=== PATIENT | male | born 1980 | race African-American/Black ===

== ENCOUNTER 2020-06-28 22:54 | Inpatient (IN) | payer SELFPAY ==
[2020-06-28 23:22] VITALS: BP 137/87; PULSE 73; RESP 17; TEMP 36.8; O2SAT 98; BMI 29.5
[2020-06-28 23:27] LABS: Add Urine Microscopic? NO
[2020-06-28 23:38] LABS: Amphetamines Screen Urine Negative (Negative); Barbiturates Screen Urine Negative (Negative); Benzodiazepines Screen Urine Negative (Negative); Cocaine Screen Urine Negative (Negative); Opiate Screen Urine Negative (Negative); PCP Screen Urine Negative (Negative); THC Screen Urine Negative (Negative)
[2020-06-28 23:44] LABS: Basophils % 0.4 %; Eosinophils # 0.1 10^3/uL (0.0-0.8); Eosinophils % 2.1 %; Hematocrit 42.8 % (42.0-52.0); Hemoglobin 13.6 g/dL (11.7-16.6); Lymphocytes # 1.9 10^3/uL (0.8-4.8); Lymphocytes % 39.8 %; Mean Corpuscular HGB Conc 31.8 g/dL (30.0-36.0); Mean Corpuscular Volume 91.3 fL (80-94); Mean Platelet Volume 9.2 fL (7.4-10.4); Monocytes # 0.5 10^3/uL (0.2-0.9); Monocytes % 10.7 %; Neutrophils # 2.18 10^3/uL (1.8-7.7); Neutrophils % 46.8 %; Nucleated Red Blood Cells % 0 %; Platelet Count 257 10^3/cmm (130-400); Red Blood Count 4.69 10^6/uL (4.1-5.3); Red Cell Distribution Width 14.7 % (12.1-15.1); White Blood Count 4.7 10^3/uL (4.0-10.0)
[2020-06-28 23:45] LABS: Bilirubin Urine Neg (Negative); Blood Urine Neg (Negative); Glucose Urine UA Norm (Normal); Ketones Urine Negative (Negative); Leukocyte Esterase Urine Negative (Negative); Nitrate Urine Negative (Negative); Protein Urine Neg (Negative); Specific Gravity, Urine 1.015 (1.005-1.030); Urine Appearance Clear (CLEAR); Urine Color Straw (Yellow); Urobilinogen Urine Norm (Negative); pH Urine 7 (5-7)
[2020-06-29] LABS: Alanine Aminotransferase 31 U/L (0-41); Albumin Level 4.2 g/dL (3.5-5.2); Alkaline Phosphatase 84 IU/L (40-130); Anion Gap 13.7 (5-19); Aspartate Amino Transferase 38 U/L (0-40); Blood Urea Nitrogen 15 mg/dL (6-20); Calcium 9.1 mg/dL (8.5-10.5); Carbon Dioxide 23 mmol/L (22-29); Chloride 104 mmol/L (98-107); Globulin 3.2 g/dL (1.3-4.6); Glomerular Filtration Rate 101.2 mL/min (90-130); Glucose 97 mg/dL (65-115); Osmolality Calculated 285 mOsm/kg (285-295); Potassium 3.7 mmol/L (3.5-5.1); Sodium 137 mmol/L (136-145); Total Bilirubin 0.4 mg/dL (0.15-1.2); Total Protein 7.4 g/dL (6.6-8.7)
[2020-06-29 00:01] LABS: Acetaminophen < 5.0 ug/mL (10-30); Alcohol Level < 10 mg/dL (0-10); Salicylate < 0.3 mg/dL (3-10)
[2020-06-29 01:44] VITALS: BP 130/85; PULSE 74; RESP 18; TEMP 36.5; O2SAT 99
[2020-06-29 06:00] VITALS: BP 130/85; PULSE 74; RESP 18; TEMP 36.5
[2020-06-29 07:30] VITALS: PULSE 86; RESP 16; O2SAT 98
[2020-06-29] MEDS: albuterol 8 gm MDI 2 PUFF INHALATION (07:30)
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
[2020-06-29] MEDS: levETIRAcetam 500 mg Tablet 750 MG PO (12:26)
[2020-06-29 14:00] VITALS: BP 113/77; PULSE 85; RESP 18; TEMP 36.7
[2020-06-29] MEDS: trazodone 50 mg Tablet PO ×2 (20:45→23:32)
--- NOTE | 2020-06-29 20:45 | PC.NURSE ---
Addendum entered by Josue Calle LPN 06/30/20 01:02: LATE ENTRY PRN FOLLOW-UP @ 2145 PT RESTING IN BED. WILL CONTINUE TO MONITOR. Original Note: PRN TRAZODONE ADMINISTERED TRAZODONE 50 MG PO PER PT REQUEST FOR SLEEP. WILL MONITOR FOR MEDICATION EFFECTIVENESS.
[2020-06-29 21:47] VITALS: BP 118/80; PULSE 69; RESP 15; TEMP 36.6; O2SAT 99
[2020-06-29] MEDS: hyDROXYzine 25 mg Capsule 50 MG PO (23:32)
--- NOTE | 2020-06-30 00:22 | ED_ITS ---
HPI - Psych General: Chief Complaint: Psychiatric Symptoms Stated Complaint: SI Time Seen by Provider: 06/28/20 23:04 History of Present Illness: HPI Narrative: 39-year-old male presents complaining of depression with suicidal ideation. He is had a couple of suicide attempts in the past. He had a knife ready to cut his throat at home, but put the knife down and called the ambulance instead. He denies any other recent illness. MD complaint: suicidal ideation and feels depressed Onset (ago): day(s) History of same: Yes Relieving factors: none Exacerbating factors: none Associated psychiatric symptoms: depression and suicidal ideation Associated symptoms: Reports suicidal ideation; Deny visual hallucinations If self harm: admits thoughts of self harm Review of Systems Const: Denies: fever(s) or chills Eyes: Denies: change in vision ENMT: Denies: swelling of lips/tongue, dental pain, epistaxis or sinus pain Card: Denies: chest pain, palpitations, irregular heart rhythm or edema Resp: Denies: dyspnea, productive cough, non-productive cough or wheezing GI: Denies: abdominal pain, nausea, vomiting, rectal pain, hematochezia or melena : Denies: difficulty urinating or hematuria Musc: Denies: neck pain, back pain or joint warmth Skin/Breast: Denies: rash or erythema Neuro: Denies: headache(s), dizziness, vertigo or confusion Psych: Reports: suicidal ideation; Denies: visual hallucinations Physical Exam Const: GENERAL APPEARANCE: well developed ORIENTATION/CONSCIOUSNESS: Yes oriented to person, Yes oriented to place and Yes oriented to time HENMT: COMMON NORMALS: normocephalic, external ears normal and Normal external nose present HEAD & SCALP: normocephalic FACE & SINUS: normal facial exam NOSE: Normal external nose present and No nasal discharge present EXTERNAL EAR: Yes external ears normal Eye: COMMON NORMALS: Equal, round and reactive pupils present, EOMs intact bilaterally and conjunctivae normal EYELID: eyelids normal CONJUNCTIVA: Yes conjunctivae normal PUPIL: Yes Equal, round and reactive pupils present Neck/C-Spine: GENERAL: No tracheal deviation Chest: COMMONS NORMALS: normal inspection of the chest CHEST: No tenderness Resp: COMMON NORMALS: clear to auscultation bilaterally EFFORT & INSPECTION: No tachypneic, No respiratory distress, No retractions, No uses accessory muscles and No tracheal deviation AUSCULTATION: clear to auscultation bilaterally, no rhonchi, no wheezes and lung sounds not diminished Cardio: COMMON NORMALS: regular rate and regular rhythm RATE: regular rate RHYTHM: regular rhythm HEART SOUNDS: no murmurs PERIPHERAL PULSES: radial pulses present GI: INSPECTION: No abdominal distension AUSCULTATION: No Hyperactive bowel sounds present and No Hypoactive bowel sounds present PALPATION: No Guarding due to palpation present (GI) and No Rigid due to palpation PERCUSSION: no dullness to percussion and no tympanic to percussion Neuro: SENSORIUM/ORIENTATION: Yes oriented to person, Yes oriented to place and Yes oriented to time Psych: COMMON NORMALS: Normal thought process present and speech normal ATTITUDE: Yes calm ACTIVITY/MOTOR BEHAVIOR: Yes appropriate eye contact SPEECH: Yes normal speech MOOD & AFFECT: Yes depressed mood THOUGHT PROCESS: Normal thought process present THOUGHT CONTENT: Yes Suicidality present, No Homicidality present and No Hallucination(s) present ATTENTION/CONCENTRATION: Yes attention grossly intact and Yes concentration grossly intact MEMORY/COGNITION: Yes memory grossly intact INSIGHT: Fair insight present (Psych) JUDGEMENT: Fair judgement present (Psych) Skin: COMMON NORMALS: no rashes or lesions noted GENERAL SKIN EXAM: no rashes or lesions noted MDM - Psych MDM Narrative: Medical decision making narrative: Medically clear for NPU admit Lab Data: Labs: Lab Results 06/28/20 06/28/20 06/28/20 Range/Units 23:17 23:17 23:38 WBC 4.7 (4.0-10.0) 10^3/ uL RBC 4.69 (4.1-5.3) 10^6/u L Hgb 13.6 (11.7-16.6) g/dL Hct 42.8 (42.0-52.0) % MCV 91.3 (80-94) fL MCH 29.0 (28.0-34.0) pg MCHC 31.8 (30.0-36.0) g/dL RDW 14.7 (12.1-15.1) % Plt Count 257 (130-400) 10^3/c mm MPV 9.2 (7.4-10.4) fL Neut % (Auto) 46.8 % Lymph % (Auto) 39.8 % Russell % (Auto) 10.7 % Eos % (Auto) 2.1 % Baso % (Auto) 0.4 % Neut # (Auto) 2.18 (1.8-7.7) 10^3/u L Lymph # (Auto) 1.9 (0.8-4.8) 10^3/u L Russell # (Auto) 0.5 (0.2-0.9) 10^3/u L Eos # (Auto) 0.1 (0.0-0.8) 10^3/u L Baso # (Auto) 0.0 (0.0-0.1) 10^3/u L Nucleated RBC % (a uto) 0 % Nucleated RBCs # 0.0 /100WBC Sodium (136-145) mmol/L Potassium (3.5-5.1) mmol/L Chloride (98-107) mmol/L Carbon Dioxide (22-29) mmol/L Anion Gap (5-19) BUN (6-20) mg/dL Creatinine (0.7-1.2) mg/dL GFR Calculation (90-130) mL/min Glucose (65-115) mg/dL Calculated Osmolal ity (285-295) mOsm/k g Calcium (8.5-10.5) mg/dL Total Bilirubin (0.15-1.2) mg/dL AST (0-40) U/L ALT (0-41) U/L Alkaline Phosphata se (40-130) IU/L Total Protein (6.6-8.7) g/dL Albumin (3.5-5.2) g/dL Globulin (1.3-4.6) g/dL Urine Color Straw (Yellow) Urine Appearance Clear (CLEAR) Urine pH 7 (5-7) Ur Specific Gravit y 1.015 (1.005-1.030) Urine Protein Neg (Negative) Urine Glucose (UA) Norm (Normal) Urine Ketones Negative (Negative) Urine Blood Neg (Negative) Urine Nitrate Negative (Negative) Urine Bilirubin Neg (Negative) Urine Urobilinogen Norm (Negative) mg/dL Ur Leukocyte Carolyne ase Negative (Negative) Salicylates (3-10) mg/dL Urine Opiates Scre en Negative (Negative) ng/mL Acetaminophen (10-30) ug/mL Ur Barbiturates Sc reen Negative (Negative) ng/mL Ur Phencyclidine S crn Negative (Negative) ng/mL Ur Amphetamines Sc reen Negative (Negative) ng/mL U Benzodiazepines Scrn Negative (Negative) ng/mL Urine Cocaine Scre en Negative (Negative) ng/mL U Marijuana (THC) Screen Negative (Negative) ng/mL Ethyl Alcohol (0-10) mg/dL 06/28/20 Range/Units 23:38 WBC (4.0-10.0) 10^3/ uL RBC (4.1-5.3) 10^6/u L Hgb (11.7-16.6) g/dL Hct (42.0-52.0) % MCV (80-94) fL MCH (28.0-34.0) pg MCHC (30.0-36.0) g/dL RDW (12.1-15.1) % Plt Count (130-400) 10^3/c mm MPV (7.4-10.4) fL Neut % (Auto) % Lymph % (Auto) % Russell % (Auto) % Eos % (Auto) % Baso % (Auto) % Neut # (Auto) (1.8-7.7) 10^3/u L Lymph # (Auto) (0.8-4.8) 10^3/u L Russell # (Auto) (0.2-0.9) 10^3/u L Eos # (Auto) (0.0-0.8) 10^3/u L Baso # (Auto) (0.0-0.1) 10^3/u L Nucleated RBC % (a uto) % Nucleated RBCs # /100WBC Sodium 137 (136-145) mmol/L Potassium 3.7 (3.5-5.1) mmol/L Chloride 104 (98-107) mmol/L Carbon Dioxide 23 (22-29) mmol/L Anion Gap 13.7 (5-19) BUN 15 (6-20) mg/dL Creatinine 1.0 (0.7-1.2) mg/dL GFR Calculation 101.2 (90-130) mL/min Glucose 97 (65-115) mg/dL Calculated Osmolal ity 285 (285-295) mOsm/k g Calcium 9.1 (8.5-10.5) mg/dL Total Bilirubin 0.4 (0.15-1.2) mg/dL AST 38 (0-40) U/L ALT 31 (0-41) U/L Alkaline Phosphata se 84 (40-130) IU/L Total Protein 7.4 (6.6-8.7) g/dL Albumin 4.2 (3.5-5.2) g/dL Globulin 3.2 (1.3-4.6) g/dL Urine Color (Yellow) Urine Appearance (CLEAR) Urine pH (5-7) Ur Specific Gravit y (1.005-1.030) Urine Protein (Negative) Urine Glucose (UA) (Normal) Urine Ketones (Negative) Urine Blood (Negative) Urine Nitrate (Negative) Urine Bilirubin (Negative) Urine Urobilinogen (Negative) mg/dL Ur Leukocyte Carolyne ase (Negative) Salicylates < 0.3 L (3-10) mg/dL Urine Opiates Scre en (Negative) ng/mL Acetaminophen < 5.0 L (10-30) ug/mL Ur Barbiturates Sc reen (Negative) ng/mL Ur Phencyclidine S crn (Negative) ng/mL Ur Amphetamines Sc reen (Negative) ng/mL U Benzodiazepines Scrn (Negative) ng/mL Urine Cocaine Scre en (Negative) ng/mL U Marijuana (THC) Screen (Negative) ng/mL Ethyl Alcohol < 10 (0-10) mg/dL Discharge Plan Discharge Admit Provider: Dmitri Burgess Discharge Date/Time: 06/29/20 02:07 Coding Level of Care Code ED Senior Research Manager for Tammy Coats
--- NOTE | 2020-06-30 01:04 | PC.NURSE ---
PRN TRAZODONE & VISTARIL ADMINISTERED 50 MG FOR PT C/O OF INSOMNIA & VISTARIL 50MG PO FOR PT C/O INCREASING ANXIETY. WILL MONITOR FOR MEDICATION FOR EFFECTIVENESS.
[2020-06-30 06:00] VITALS: BP 123/79; PULSE 87; RESP 16; TEMP 36.7; O2SAT 98
[2020-06-30] MEDS: levETIRAcetam 500 mg Tablet 750 MG PO (08:25)
--- NOTE | 2020-06-30 12:58 | PM.NPN ---
Subjective NPU Subjective: Interval history: Patient presents today reporting that he did not get his Haldol last night. We discussed making sure that it was taking care of today. He continues to endorse a plan to get back on the medication and get possibly back on the shot that he was getting in long-term. We discussed the risk benefits and alternatives of getting him reconnected with services and him working with the treatment team to explore what our options would be available to him and what ever resources would be available to him in the community. He understood and agreed to proceed as is documented in this note. He reports he is sleeping well and eating okay. Of note patient had said yesterday that this was his first hospitalization at [facility] [place] [place] but while working on this note I noted that he in fact appears to have been here for 5 times previously. The following is a excerpt his last [facility] inpatient eval: DATE OF ADMISSION: 10/26/2011 DATE OF H\T\P: 10/27/2011 DATE OF DICTATION: 10/27/2011 IDENTIFYING DATA: The patient is a 30-year-old male with a date of 1980. He is currently single but engaged. 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 He is on a 96-hour hold that expires on 10/25/2011. This 30-year-old male was admitted with suicidal ideation, depression, and a history of questionable meth abuse. He was confused, and based on admit to the Emergency Room, he had become agitated and was uncooperative when he was told that an IV had to be removed. He had also received Haldol and Ativan and was placed on a 96-hour hold. He had had a plan to cut himself with a razor, but he states that he has been depressed for a while. He denied any physical, emotional, or sexual abuse. He has had past admission to the Neuropsychiatric Unit at [facility] [place] [place] and has been getting his care. He states that he has to go to [place] for his care, and he lives in [place]. He has a negative family history of mental illness. He has an eleventh grade education. He did get a GED, and he has three years of college. He had these suicidal thoughts and has a history of being noncompliant with medication. He denies any recent drug use or alcohol consumption. He has been somewhat anxious and depressed and has had a previous history of a suicide attempt. He had an unremarkable review of systems. It was noted that he has had a past diagnosis of bipolar disorder, asthma, anemia, and also has a history of schizoaffective disorder. PHYSICAL EXAMINATION: Unremarkable. MENTAL STATUS EXAMINATION: Shows a 30-year-old male who is neat and clean in appearance. His affect is bland. His mood is neutral. He denies hallucination or delusion. He is oriented times three. His immediate, intermediate, and remote memory are intact. He is capable of abstract thinking. His insight and judgment are fair. IMPRESSION: AXIS I: Schizoaffective disorder, bipolar type, rule out substance abuse. AXIS II: Deferred. AXIS III: Asthma, by history. AXIS IV: Moderate. AXIS V: Global assessment of function: 30. PLAN: Will be to place him on albuterol, Symbicort, and triamcinolone. He will be placed on Haldol 5 mg at bedtime. Mental Status Exam MSE Comments: This is a overweight versus obese -Maldivian male with limited dress, grooming and eye contact. No abnormal movements. Cooperative with exam in no acute distress. Speech was decreased rate and volume. Mood described as OK, affect odd and subdued. Thought process organized. Thought content: Patient denied any suicidal or homicidal ideations, there were no delusions reported or noted, he denies any auditory or visual hallucinations. Attention concentration appeared intact and memory was mostly reliable but none were formally tested. He is alert and oriented x3. Insight and judgment appear fair impulse control is limited. Vitals/I&O/Wt Last Vital Signs Temp 98.8 F 06/30/20 20:55 Pulse 85 06/30/20 20:55 Resp 17 06/30/20 20:55 BP 113/74 06/30/20 20:55 Pulse Ox 98 06/30/20 20:55 Weight last 48 hrs Weight 90.718 kg Data NPU : 06/28/20 23:38 06/28/20 23:38 A&P Additional A&P Information (1) Schizoaffective disorder: (2) Adjustment disorder with mixed disturbance of emotions and conduct: Additional A&P Information This is a 39-year-old -Maldivian male who presents with a fairly odd story of being managed with Haldol with no thought disorder/psychosis who presents reporting that he was decompensating secondary to his significant other being put in a intermediate and him not being able to see her secondary to COVID who presents reporting a willingness to restart his medication. 1. Continue current medication. Will restart Haldol 5 mg p.o. nightly and try to get information on what his dose was in the long-term a month ago. Could get him restarted on that Haldol Decanoate injection once we have that information. 2. Continue every 15 minute checks for safety. 3. Encouraged individual, group and milieu therapy. 4. We will attempt to get patient connected with [facility] [place] so he has a provider in the area. Attestations NPU Medical Necessity Statement*: Inpatient hospitalization is medically necessary and the clinically appropriate intervention at this time. We will monitor medications and add medications and make changes as indicated. Likely length of stay 2-4 days. Coding Level of Care Code Acute Advertising Coordinator for Tammy Coats
[2020-06-30 13:18] VITALS: BP 124/82; PULSE 86; RESP 18; TEMP 37.1
[2020-06-30 20:55] VITALS: BP 113/74; PULSE 85; RESP 17; TEMP 37.1; O2SAT 98
--- NOTE | 2020-06-30 21:10 | PC.NURSE ---
Pt refused HS Haldol. Pt was offered prn meds for sleep and anxiety, but refused all.
[2020-07-01 06:00] VITALS: BP 114/79; PULSE 80; RESP 19; TEMP 36.7; O2SAT 99
[2020-07-01] MEDS: levETIRAcetam 500 mg Tablet 750 MG PO (07:39)
--- NOTE | 2020-07-01 09:44 | P.DS_ITS ---
Diagnoses at Discharge Discharge Diagnosis (1) Schizoaffective disorder: Status: Chronic (2) Adjustment disorder with mixed disturbance of emotions and conduct: Status: Resolved Reason for Visit Reason for Visit: SI Brief History: 39-year-old male presents complaining of depression with suicidal ideation. He is had a couple of suicide attempts in the past. He had a knife ready to cut his throat at home, but put the knife down and called the ambulance instead. He denies any other recent illness. MD complaint: suicidal ideation and feels depressed Onset (ago): day(s) History of same: Yes Relieving factors: none Exacerbating factors: none Associated psychiatric symptoms: depression and suicidal ideation Associated symptoms: Reports suicidal ideation; Deny visual hallucinations If self harm: admits thoughts of self harm. He was admitted to the neuropsychiatric unit for definitive treatment of those issues. He presents today reporting that this is first psychiatric admission at [facility]. He reports that in the years since that occurred he has maybe been hospitalized 40 or 50 times. He reports that often has been overdoses and suicidal thoughts but denied psychosis or auditory visual hallucinations. Reports mostly with depression and anxiety. However with that said he reported that the last time he was in treatment the only thing he was being treated with was Haldol decanoate. He cannot explain why there were only using a antipsychotic if he was not having any psychosis. He could not remember the dose of the frequency. He was later able to acknowledge that he was recently in fdc and they were given it to him in fdc at [facility] as recently as last month. He reports that he was getting his treatment at [facility] in [place]. He reports that he moved down here to be with family and his girlfriend and her son. He reports that he smokes about 4 to 5 cigarettes a day he denies alcohol marijuana or any other illicit drugs endorses never going to any rehabs or having any DUIs. He reports that his suicidal thinking happened because he was missing his girlfriend who he reports is in a retirement because she has diabetes and had a reaction to the plate they put in her ankle and we had to take the plate back out and because of COVID he is not able to visit her and he is struggling with that reality. He reported that his goals are to ultimately find a job, get on his medication, get a house and take care of his family. Hospital Course Hospital Course This is a 39-year-old -[place] male who presents with a fairly odd story of being managed with Haldol with no thought disorder/psychosis who presents reporting that he was decompensating secondary to his significant other being put in a retirement and him not being able to see her secondary to COVID who presents reporting a willingness to restart his medication. 1. Continue current medication. Will restart Haldol 5 mg p.o. nightly and try to get information on what his dose was in the fdc a month ago. Could get him restarted on that Haldol Decanoate injection once we have that information. 2. Continue every 15 minute checks for safety. 3. Encouraged individual, group and milieu therapy. 4. We will attempt to get patient connected with [facility] so he has a provider in the area. Hospital Day #3 Interval history: Patient presents today reporting that he did not get his Haldol last night. We discussed making sure that it was taking care of today. He continues to endorse a plan to get back on the medication and get possibly back on the shot that he was getting in fdc. We discussed the risk benefits and alternatives of getting him reconnected with services and him working with the treatment team to explore what our options would be available to him and what ever resources would be available to him in the community. He understood and agreed to proceed as is documented in this note. He reports he is sleeping well and eating okay. 1. Continue current medication. Will restart Haldol 5 mg p.o. nightly and try to get information on what his dose was in the fdc a month ago. Could get him restarted on that Haldol Decanoate injection once we have that information. 2. Continue every 15 minute checks for safety. 3. Encouraged individual, group and milieu therapy. 4. We will attempt to get patient connected with [facility] so he has a provider in the area. Hospital day #4: Following his meeting with the physician yesterday, he began refusing medication. He presents today demanding to leave AGAINST MEDICAL ADVICE. 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 He was confronted with the reasons that he presented for hospital admission and with concern that he had not been treated for that cause. However he denied suicidal and homicidal ideation. He denied the presence of auditory and visual hallucinations. He demanded to be discharged AGAINST MEDICAL ADVICE. Mental Status Exam MSE Comments: Discharge Mental Status Exam: Appearance: hygiene is good; no gross neurological deficits., gait is unremarkable; AIMS=0 Speech: Speech is of normal rate and rhythm and easily understood. Thought processes: Thought processes are abstract. Judgment is adequate for safety. Associations: intact Psychotic processes: There is no indication of guarding or paranoia. There is no attention to the internal stimuli. Auditory and visual hallucinations are denied. Judgment: Insight is fair. Problem solving skills are adequate for safety. Orientation: The patient is oriented to person, place time and situation. Memory: no deficits noted in immediate, intermediate, or remote spheres. Attention: The patient is alert and interpersonally engaged. Language: Verbalizations are coherent. Fund of knowledge: Fund of knowledge is adequate. Affect/Mood: Affect is consistent with a euthymic mood. denied suicidal ideation Affective range is appropriate. Psychosis: perception unimpaired except through cognitive distortion; reality testing intact. Discharge Data Vitals: Last Vital Signs Temp 98.0 F 07/01/20 06:00 Pulse 80 07/01/20 06:00 Resp 19 H 07/01/20 06:00 BP 114/79 07/01/20 06:00 Pulse Ox 99 07/01/20 06:00 Discharge Plan Discharge Patient Disposition: Left Against Medical Advice Prescriptions: New haloperidol 5 mg Tablet 5 mg PO BEDTIME Qty: 30 RF: 4 Continued levetiracetam 750 mg Tablet Extended Release 24 Hr 750 mg PO DAILY Qty: 30 RF: 5 Discharge Orders: Discharge Order (Routine); Ordered 07/01/20 Ordered By: Que Graves Referrals: [facility] [Other] (in [place] [facility] May call [phone] for information on a walk in assessment.) Discharge Attestations NPU Time Spent in Discharge Care*: less than 30 min Coding Level of Care Code Acute Dye Box Operator for g Fwd Diagnoses Schizoaffective disorder F25.9 Adjustment disorder with mixed disturbance of emotions and conduct F43.25
== END 2020-07-01 11:19 | disposition left against medical advice (07) | DRG 885 ==
LOC: ER 23:49 → NP 06-29 01:09
PROVIDERS: Emergency Medicine; Admitting Provider Psychiatry & Neurology Psychiatry; Visit Provider Psychiatry & Neurology Psychiatry
DX: F25.9 Schizoaffective disorder, unspecified (principal); R45.851 Suicidal ideations; F43.25 Adjustment disorder with mixed disturbance of emotions and conduct; Z53.29 Procedure and treatment not carried out because of patient's decision for other reasons; Z91.5 Personal history of self-harm; F32.9 Major depressive disorder, single episode, unspecified; Z81.8 Family history of other mental and behavioral disorders
CPT/HCPCS: 12345; 80053; 80306; 80307; 81003; 85025; 94640; 99284; J3535

== ENCOUNTER → 2020-07-18 12:45 | Outpatient (BNVA) | payer OTHER, SELFPAY | PROVIDERS: Visit Provider Nurse Practitioner Family | DX: Z11.59 Encounter for screening for other viral diseases (principal); Z20.828 Contact with and (suspected) exposure to other viral communicable diseases | CPT/HCPCS: 87635 ==